=== PATIENT | male | born 1950 | race Caucasian/White ===

== ENCOUNTER 2018-04-30 18:20 | Emergency (ER) | payer MEDICARE, OTHER ==
[~2018-04-30] VITALS: Ht 180.3 cm; Wt 88.5 kg
[2018-04-30] MEDS ORDERED: BISA5TAB13 (18:49)
[2018-04-30] MEDS ORDERED: BENAZEPRIL (18:49)
[2018-04-30] MEDS ORDERED: ASPI-605 PO (18:49)
[2018-04-30] MEDS ORDERED: NAPROSYN (18:49)
[2018-04-30] MEDS ORDERED: NORCO (18:49)
[2018-04-30] MEDS ORDERED: METOPROLOL (18:49)
[2018-04-30] MEDS ORDERED: LIPITOR (18:49)
[2018-04-30] MEDS ORDERED: GABAPENTIN (18:49)
[2018-04-30] MEDS ORDERED: TRAM50TA2 PO (18:49)
[2018-04-30] MEDS: IV NORMAL SALINE 1000 ML BAG IV ONE (19:46)
[2018-04-30] MEDS ORDERED: ONDANSETRON 4 MG/2 ML VIAL ONE (19:52)
[2018-04-30] MEDS ORDERED: FENTANYL CITRATE 100 MCG/2 ML AMPUL ONE (19:52)
[2018-04-30] MEDS: FENTANYL CITRATE 100 MCG/2 ML AMPUL IV ONE (19:55)
[2018-04-30] MEDS: ONDANSETRON 4 MG/2 ML VIAL IV ONE (19:55)
[2018-04-30 19:57] LABS: BASOPHILS # (AUTO) 0.1 K/uL (0.0-8.0); BASOPHILS % (AUTO) 0.6 % (0.0-2.0); EOSINOPHILS % (AUTO) 0.2 % (0.0-7.0); HEMATOCRIT 42.6 % (36.7-47.1); HEMOGLOBIN 14.5 g/dL (12.5-16.3); LYMPHOCYTES # (AUTO) 2.7 K/uL (20.0-40.0); LYMPHOCYTES % (AUTO) 30.5 % (20.5-51.5); MEAN CORPUSCULAR HEMOGLOBIN 31.5 uug (23.8-33.4); MEAN CORPUSCULAR HGB CONC 34 g/dL (32.5-36.3); MEAN CORPUSCULAR VOLUME 92.4 fL (73.0-96.2); MONOCYTES # (AUTO) 0.7 K/uL (2.0-10.0); MONOCYTES % (AUTO) 7.7 % (0.0-11.0); NEUTROPHILS # (AUTO) 5.4 K/uL (1.8-8.9); PLATELET COUNT (AUTO) 211 K/uL (152-348); RED BLOOD CELL COUNT(AUTO) 4.61 MIL/uL (4.06-5.63); WHITE BLOOD COUNT (AUTO) 8.9 K/uL (3.6-10.2)
[2018-04-30 20:05] LABS: CREATININE 1.2 mg/dL (0.6-1.3)
[2018-04-30 20:11] LABS: BILIRUBIN,DIRECT 0.1 mg/dL (0.0-0.2); BILIRUBIN,TOTAL 0.7 mg/dL (0.2-1.0); TOTAL PROTEIN, SERUM 7.9 g/dL (6.4-8.2)
--- NOTE | 2018-04-30 21:40 | NUR ---
IV removed. Catheter intact and site benign. Pressure and 4x4 gauze applied to site. No bleeding noted.
[2018-04-30] MEDS: ONDANSETRON ODT 4 MG TAB.RAPDIS SL ONE (21:55)
--- NOTE | 2018-04-30 21:56 | NUR ---
Patient discharged to home in stable conditon. Written and verbal after care instructions given. Patient verbalizes understanding of instructions. Pt ambulated out of ER in steady gait. Pt states he will take Uber home. All belongings with pt. VSS. NAD noted.
[2018-04-30 21:58] VITALS: BP 128/94
[2018-04-30] MEDS ORDERED: ONDANSETRON ODT 4 MG TAB.RAPDIS ONE (21:59)
== END 2018-04-30 21:58 | disposition home or self-care (01) ==
LOC: ER 18:25
DX: G89.4 Chronic pain syndrome (principal); M25.512 Pain in left shoulder; M54.5 Low back pain; I25.2 Old myocardial infarction; Z88.2 Allergy status to sulfonamides
CPT/HCPCS: 36415; 70030-TC; 71045; 83605; 83690; 85025; 85730; 87040; 93005; A4663; J2405; J3010; J7030; Q0162

== ENCOUNTER 2018-05-06 18:45 | Emergency (ER) | payer MEDICARE, OTHER ==
[~2018-05-06] VITALS: Ht 180.3 cm; Wt 88.5 kg
[~2018-05-06 18:45] MED LIST: ASPI-605 PO; BENAZEPRIL; BISA5TAB13; GABAPENTIN; LIPITOR; METOPROLOL; NAPROSYN; NORCO; TRAM50TA2 PO
--- NOTE | 2018-05-06 19:42 | NUR ---
Patient discharged to home in stable conditon. Written and verbal after care instructions given. Patient verbalizes understanding of instructions.
[2018-05-06 19:43] VITALS: BP 148/82
== END 2018-05-06 19:44 | disposition home or self-care (01) ==
LOC: ER 18:56
DX: M25.511 Pain in right shoulder (principal); R11.0 Nausea; Z76.0 Encounter for issue of repeat prescription; I25.2 Old myocardial infarction; Z88.2 Allergy status to sulfonamides
CPT/HCPCS: 99283; A4663

== ENCOUNTER 2018-05-10 12:05 | Emergency (ER) | payer MEDICARE, OTHER ==
[~2018-05-10] VITALS: Ht 177.8 cm; Wt 88.5 kg
--- NOTE | 2018-05-10 12:30 | NUR ---
Patient discharged to home in stable conditon. Written and verbal after care instructions given. Patient verbalizes understanding of instructions given, ambulatory with a steady gait
[2018-05-10 12:44] VITALS: BP 111/88
== END 2018-05-10 12:35 | disposition home or self-care (01) ==
LOC: ER 12:08
DX: M25.511 Pain in right shoulder (principal); I25.2 Old myocardial infarction; Z88.2 Allergy status to sulfonamides
CPT/HCPCS: 99283; A4663